=== PATIENT | female | born 1980 ===

== ENCOUNTER 2021-07-27 07:30 | Inpatient (IN) | payer OTHER ==
[~2021-07-27] VITALS: Ht 121.9 cm; Wt 5.0 kg
[2021-07-27] MEDS ORDERED: HYDRODIURIL12.5 MG PO (09:22)
[2021-07-27] MEDS ORDERED: UROCIT-K15 MEQ PO (09:22)
== END 2021-08-04 11:37 | disposition home or self-care (01) | DRG 743 ==
LOC: ADM 07:30 → CIR.AMB 08-01 07:00 → EDSTATUS 08-01 07:30 → SURH 08-01 07:30 → O/R 08-01 09:37 → OB/GYN 08-01 17:36
PROVIDERS: ADMIT Obstetrics & Gynecology; ATTEND Obstetrics & Gynecology
PROC: 0UB70ZZ Excision of Bilateral Fallopian Tubes, Open Approach (ICD-10-PCS; 2021-08-01)
PROC: 0UT90ZZ Resection of Uterus, Open Approach (ICD-10-PCS; principal; 2021-08-01 07:00)
DX: D25.2 Subserosal leiomyoma of uterus (principal); D28.2 Benign neoplasm of uterine tubes and ligaments; N83.8 Other noninflammatory disorders of ovary, fallopian tube and broad ligament; N72 Inflammatory disease of cervix uteri